=== PATIENT | male | born 1985 | race Caucasian/White ===

== ENCOUNTER 2019-12-01 16:38 | Emergency (ER) | payer OTHER, SELFPAY ==
--- NOTE | ~2019-12-01 | CT_ITS ---
EXAMINATION: CT abdomen pelvis w con DATE: 12/01/2019 19:08 INDICATION: Flank pain. Dark tarry stools. TECHNIQUE: Computed tomography (CT) of the abdomen and pelvis was performed without intravenous contr ast. Automated exposure control and iterative reconstruction technique were employed. The dose-length product was 811.00 mGy-cm. COMPARISON: 09/13/2018 FINDINGS: Mild atelectasis in the lingula and right middle lobe. Heart size is normal. No pericardial or pleura l effusion. Liver, gallbladder, spleen, pancreas, bilateral adrenal glands and kidneys are normal. Chas wels including the appendix are normal. Bladder is normal. No free intraperitoneal gas or fluid. No p athologically enlarged abdominal or pelvic lymphadenopathy. Mild lumbar levocurvature. IMPRESSION: 1. No acute intra-abdominal/pelvic process. Reviewed, dictated and finalized at location A.
[2019-12-01 16:42] VITALS: BP 147/98; PULSE 102; RESP 18; TEMP 37.1; O2SAT 98
[2019-12-01] MEDS: FAMOTIDINE 20 MG/2 ML VIAL IV PUSH (16:52)
[2019-12-01] MEDS: SODIUM CHLORIDE 0.9% IV 1,000 ML 999 ML IV CONT (16:54)
[2019-12-01 16:58] LABS: Basophils Percent Auto 0.5 % (0.2-1.2); Eosinophils Absolute Auto 0.1 K/mm3 (0-0.3); Eosinophils Percent Auto 0.8 % (0-4.4); Hematocrit 42.7 % (42.0-52.0); Hemoglobin 14.3 g/dL (14.0-18.0); Immature Granulocyte Absolute 0.03 K/mm3 (0.00-0.031); Immature Granulocyte Percent A 0.3 % (0-0.5); Lymphocytes Absolute Auto 1.94 K/mm3 (0.9-3.2); Lymphocytes Percent Auto 22.6 % (18.3-44.2); Mean Corpuscular HGB Conc 33.5 g/dl (32-36); Mean Corpuscular Hemoglobin 29.9 pg (26-34); Mean Corpuscular Volume 89.3 fl (80-100); Mean Platelet Volume 11.4 fl (7.4-10.4); Monocytes Absolute Auto 0.9 K/mm3 (0.1-0.6); Monocytes Percent Auto 10.6 % (2.6-8.5); Neutrophils Absolute Auto 5.6 K/mm3 (1.3-6.7); Neutrophils Percent Auto 65.2 % (45.5-73.1); Platelet Count Result 192 k/mm3 (150-375); Red Blood Count 4.78 M/mm3 (4.6-6.20); Red Cell Distribution Width 13.3 % (11.5-14.5); White Blood Count 8.6 K/mm3 (4.5-10.0)
--- NOTE | 2019-12-01 17:06 | ED.ABDPAIN ---
HPI - Abdominal Pain General Chief Complaint: Abdominal Pain Stated Complaint: right flank/abd pain Time Seen by Provider: 12/01/19 16:39 Source: patient Mode of arrival: ambulatory Limitations: no limitations History of Present Illness HPI narrative: Patient is a 4-year-old male who presents with 5 days duration of worsening right lower quadrant pain patient noted initial suprapubic discomfort now notes that he has focal right lower quadrant pain with some pain in the flank is a moderate aching pain patient denies any vomiting but does note nausea also notes he has had some loose stools some of which might of had blood in them. Patient denies similar occurrence in the past and has not taken anything for his symptoms Related Data Home Medications Medication Instructions Recorded Confirmed quetiapine 100 mg tablet 100 mg PO BID 05/20/19 Allergies Allergy/AdvReac Type Severity Reaction Status Date / Time No Known Allergies Allergy Verified 12/01/19 16:45 Review of Systems Review of Systems: All systems reviewed & are unremarkable except as noted in HPI and below PMFSH Past Medical History Medical History Seizures Social History Social History Smoking status: Current every day smoker Alcohol intake: never Gender identity (if verbalized by the patient): Male Exam Narrative: Exam Narrative: GENERAL: Well-appearing, well-nourished, and in no acute distress. HEAD: Normocephalic, atraumatic. EYES: PERRLA and EOMI. ENT: Nares clear, no rhinorrhea or epistaxis. Mucous membranes moist. CHEST: Clear to auscultation. No respiratory distress. No wheezes rales or rhonchi HEART: Regular rate and rhythm. No murmur heard. Normal peripheral pulses. ABDOMEN: Soft, focal right lower quadrant tenderness with generalized tenderness of the abdomen, distended EXTREMITIES: Normal range of motion. No edema. SKIN: Warm, dry, no rash. NEURO: No focal deficits. Alert and oriented x3. PSYCH: Normal mood and affect. Course Course Emergency Course: Patient is a 34-year-old male who presents to emergency department for evaluation of abdominal pain without any obvious etiology for his symptoms patient is aware of case findings treatment plan and diagnosis and felt appropriate for outpatient reevaluation and is aware of recommendations and discussion with primary care Consultations Consultation #1: Discussed case with primary care who will follow with patient tomorrow Date: 12/01/19 Time: 19:39 Vital Signs Vital signs: Vital Signs Temperature 98.7 F 12/01/19 16:42 Pulse Rate 102 H 12/01/19 16:42 Respiratory Rate 18 12/01/19 16:42 Blood Pressure 147/98 H 12/01/19 16:42 Pulse Oximetry 98 12/01/19 16:42 Temperature 98.7 F 12/01/19 16:42 Pulse Rate 82 12/01/19 18:30 Respiratory Rate 18 12/01/19 18:30 Blood Pressure 123/83 12/01/19 18:30 Pulse Oximetry 100 12/01/19 18:30 MDM - Abdominal Pain MDM Narrative Medical decision making narrative: Patient in the room at this time in no distress aware of case findings treatment plan and diagnosis agreeing to follow-up with primary care tomorrow for reevaluation patient in the room in no distress aware of case findings treatment plan diagnosis and discussion with primary care and agrees to follow-up as directed was provided with reasons to return patient felt appropriate for outpatient reevaluation Differential Diagnosis Differential diagnosis: Likely abdominal pain, acute appendicitis, constipation, diverticulitis, pancreatitis and small bowel obstruction Lab Data Result diagrams: 12/01/19 16:52 12/01/19 16:52 Labs: Lab Results 12/01/19 12/01/19 12/01/19 Range/Units 16:52 16:52 17:09 WBC 8.6 (4.5-10.0) K/mm3 RBC 4.78 (4.6-6.20) M/mm3 Hgb 14.3 (14.0-18.0) g/dL Hct 42.7 (42.0-52.0) % MCV
[2019-12-01 17:11] LABS: Alanine Aminotransferase 61 U/L (4-50); Albumin Level 4.9 g/dL (3.5-5.1); Alkaline Phosphatase 109 U/L (38-126); Aspartate Amino Transferase 41 U/L (17-59); Bilirubin,Total 0.4 mg/dL (0.2-1.3); Blood Urea Nitrogen 14 mg/dL (9-20); Calcium 9.5 mg/dL (8.4-10.2); Carbon Dioxide 24 mmol/L (22-30); Chloride 104 mmol/L (98-107); Estimated CRCL calculation 89 ml/min; Estimated Glomerular Filt Rate > 60; Glucose 93 mg/dL (75-110); Lipase 350 U/L (23-300); Potassium 3.9 mmol/L (3.4-5.0); Sodium 138 mmol/L (137-145)
[2019-12-01 17:18] LABS: Add Urine Microscopic? NO; Appearance Urine Clear (Clear); Bilirubin Urine Negative (Negative); Blood Urine Negative (Negative); Color Urine Straw (Yellow); Glucose Urine UA Negative (Negative); Ketones Urine Negative (Negative); Leukocyte Esterase Ur Negative LEU/UL (Negative); Nitrate Urine Negative (Negative); Protein Urine Negative (Negative); Urobilinogen Urine Negative mg/dL (<2.0)
[2019-12-01 18:30] VITALS: BP 123/83; PULSE 82; RESP 18; O2SAT 100
[2019-12-01] MEDS: IBUPROFEN IV 800 MG/200 ML 800 MG/200 ML BAG 400 MG IVPB (19:35)
[2019-12-01 20:18] VITALS: BP 125/89; PULSE 77; RESP 16; O2SAT 99
== END 2019-12-01 20:20 | disposition home or self-care (01) ==
PROVIDERS: Emergency Medicine Emergency Medical Services; Emergency Provider Emergency Medicine; PCP Family Medicine
DX: R10.31 Right lower quadrant pain (principal); F17.200 Nicotine dependence, unspecified, uncomplicated
CPT/HCPCS: 36415; 74177; 80053; 81003; 83690; 85025; 96361; 96365; 96375; 99284; J0131; J1741; J7030; Q9967

== ENCOUNTER 2020-03-27 14:48 | Outpatient (CLI) | payer OTHER, SELFPAY ==
[2020-03-27 15:16] LABS: Basophils Percent Auto 0.4 % (0.2-1.2); Eosinophils Percent Auto 0.3 % (0-4.4); Hematocrit 39.2 % (42.0-52.0); Hemoglobin 13.5 g/dL (14.0-18.0); Immature Granulocyte Absolute 0.04 K/mm3 (0.00-0.031); Immature Granulocyte Percent A 0.4 % (0-0.5); Lymphocytes Absolute Auto 1.66 K/mm3 (0.9-3.2); Lymphocytes Percent Auto 17.2 % (18.3-44.2); Mean Corpuscular HGB Conc 34.4 g/dl (32-36); Mean Corpuscular Hemoglobin 29.8 pg (26-34); Mean Corpuscular Volume 86.5 fl (80-100); Mean Platelet Volume 11.7 fl (7.4-10.4); Monocytes Absolute Auto 0.7 K/mm3 (0.1-0.6); Monocytes Percent Auto 7.4 % (2.6-8.5); Neutrophils Absolute Auto 7.2 K/mm3 (1.3-6.7); Neutrophils Percent Auto 74.3 % (45.5-73.1); Platelet Count Result 194 k/mm3 (150-375); Red Blood Count 4.53 M/mm3 (4.6-6.20); Red Cell Distribution Width 13.2 % (11.5-14.5); White Blood Count 9.7 K/mm3 (4.5-10.0)
[2020-03-27 15:28] LABS: CRP 1.6 mg/dL (<1.0); Uric Acid 8.4 mg/dL (3.5-8.5)
[2020-03-27 15:54] LABS: Erythrocyte Sedimentation Rate 19 mm/hr (0-20)
[2020-03-27 17:26] LABS: Appearance Synovial Fluid Hazy (Clear); Color Synovial Fluid Yellow (Colorless); Nucleated Cell Synovial Fluid 55 /uL (0-200); RBC Synovial Fluid 55 /uL (0-0); Source Synovial Fluid Synovial fluid
[2020-03-27 17:27] LABS: Lymphocytes Synovial Fluid 87 %; Macrophages Synovial Fluid 13 %
[2020-03-27 17:28] LABS: Crystals Synovial Fluid None Seen (None Seen)
== END 2020-03-27 14:49 | disposition home or self-care (01) ==
PROVIDERS: PCP Family Medicine; Visit Provider Orthopaedic Surgery
DX: M25.461 Effusion, right knee (principal)
CPT/HCPCS: 36415; 84550; 85025; 85652; 86140; 87070; 87075; 87205; 89051; 89060

== ENCOUNTER 2020-04-27 09:29 | Outpatient (CLI) | payer OTHER, SELFPAY ==
--- NOTE | ~2020-04-27 | MR_ITS ---
EXAMINATION: MR knee RT wo con DATE: 04/27/2020 10:29 INDICATION: Right knee pain and joint effusion. TECHNIQUE: Magnetic resonance imaging (MRI) of the right knee was performed without intravenous contr ast. Sequences included coronal PD-weighted FSE, coronal PD-weighted FS FSE, sagittal T2-weighted FS E, sagittal PD-weighted FS FSE and axial PD weighted fat saturated FSE. COMPARISON: None. FINDINGS: Medial compartment: Medial meniscus is normal. There is a sagittally oriented chondral fissure extending approximately 7 mm AP and involving up to 50% the cartilage thickness along the lateral side of the anterior to mid w eightbearing medial femoral condyle. Articular cartilage is otherwise normal. Lateral compartment: Lateral meniscus is normal. Articular cartilage is normal. Patellofemoral compartment: Normal variant bipartite patella with small superolateral accessory apophyseal center with contiguous articular cartilage extending across the synchondrosis between the main patella and the accessory ap ophyseal center. Articular cartilage is normal. Ligaments and tendons: Anterior and posterior cruciate ligaments are normal. The medial collateral ligament and fibular daniel ateral ligament complex are normal. Moderate size enthesophyte at the patellar insertion of the river l distal quadriceps tendon. The patellar tendon is normal. The visualized medial and lateral hamstrin g tendons as well as the iliotibial band are normal. Fluid: Physiologic amount of fluid in the joint space. No loose osteochondral bodies identified. There is fo perla edema at the inferomedial aspect of Hoffa's fat pad situated anterior to the medial tibial platea u which is of indeterminate etiology or significance. Osseous/other: Normal marrow signal. No reactive edema, fracture or pathologic marrow replacing process. IMPRESSION: 1. Single small partial-thickness chondral fissure along the weightbearing medial femoral condyle. 2. Small amount of nonspecific edema at the inferomedial aspect of Hoffa's fat pad which is of indete rminate etiology or significance. 3. Normal variant bipartite patella with normal overlying cartilage and no reactive edema to suggest apophysitis. Reviewed, dictated and finalized at location B. IMPRESSION: 1. Single small partial-thickness chondral fissure along the weightbearing medi al femoral condyle. 2. Small amount of nonspecific edema at the inferomedial aspect of Hoffa's fat pad which is of indeterminate etiology or significance. 3. Normal variant bipartite patella with normal overlying cartilage and no reac tive edema to suggest apophysitis.
== END 2020-04-27 09:30 | disposition home or self-care (01) ==
PROVIDERS: PCP Family Medicine; Visit Provider Physician Assistant Medical
DX: M25.461 Effusion, right knee (principal)
CPT/HCPCS: 73721

== ENCOUNTER 2021-12-28 14:59 | Emergency (ER) | payer OTHER, SELFPAY ==
[2021-12-28 15:10] VITALS: BP 113/67; PULSE 86; RESP 16; TEMP 36.4; O2SAT 100
[2021-12-28 15:19] VITALS: BP 113/67; PULSE 86; RESP 16; TEMP 36.4; O2SAT 100
--- NOTE | 2021-12-28 15:21 | ED.WOUNDLAC ---
HPI - Wound/Laceration General Chief Complaint: Wound/Laceration Stated Complaint: FINGER LACERATION Time Seen by Provider: 12/28/21 15:11 Source: patient Mode of arrival: ambulatory Limitations: no limitations History of Present Illness HPI narrative: Patient presents today complaining of a laceration to his left second finger that was sustained 2.5 hours prior to arrival. He was cutting drywall with a razor knife, when the knife slipped and cut a chunk of skin off of his finger, while he is working a side job. He is up-to-date on his tetanus vaccine. He does report some tingling to the finger, but denies numbness. Currently rates his pain 5/10 and has been taking no medication and no [id number] treatment prior to arrival. Related Data Allergies Allergy/AdvReac Type Severity Reaction Status Date / Time No Known Allergies Allergy Verified 12/28/21 15:18 Review of Systems Review of Systems: CONSTITUTIONAL: Denies body aches, fever, chills, or sweats. EYES: Denies visual changes, redness, or discharge. ENT: Denies rhinorrhea, congestion, sore throat, or otalgia. CARDIOVASCULAR: Denies chest pain, palpitations, or edema. RESPIRATORY: Denies cough or dyspnea. GASTROINTESTINAL: Denies abdominal pain, nausea, vomiting, or diarrhea. GENITOURINARY: Denies dysuria or hematuria. SKIN: Denies rash, itching. + Laceration to left second finger MUSCULOSKELETAL: Denies back pain, joint pain, or myalgia. NEUROLOGIC: Denies headache, numbness, tingling, or weakness. PSYCH: Denies depression or anxiety. [facility] Past Medical History Medical History (Updated 12/28/21 @ 15:26 by Joslyn Morataya, GONZALO, BC) Amnesia memory loss Atypical migraine Benign tumor of back Removal of Chronic post-traumatic headache, not intractable Colitis Encephalopathy, unspecified Nicotine dependence, unspecified, uncomplicated Seizures Sequelae of viral encephalitis Family History Family History Father Acute myocardial infarction Other Diabetes mellitus Family history of cardiovascular disease Family history of malignant neoplasm Social History Social History Alcohol intake: current Drinks per week: 4 Substance use: never Substance use type: does not use Gender identity (if verbalized by the patient): Male Comments At time of signature, I have reviewed and agree with nursing past medical, surgical, social and family history unless otherwise noted. Please see nursing chart for further information. There is no relevant family history pertinent to the presenting complaint Exam Narrative: GENERAL: Well-appearing, well-nourished, and in no acute distress. HEAD: Normocephalic, atraumatic. EYES: EOMI. No redness or drainage. Conjunctivae normal. ENT: Mucous membranes pink and moist. NECK: Normal AROM. CHEST: No respiratory distress. EXTREMITIES: Normal range of motion. No edema. SKIN: Warm, dry, no rash. Capillary refill normal. Normal skin turgor. 1x0.5cm full thickness oval skin avulsion to the pad of the left second distal phalanx. Distal sensation intact. Capillary refill normal. Full AROM of the finger. Area is tender to palpation. No active bleeding. NEURO: No focal deficits. Alert and oriented x3. Gait steady. PSYCH: Normal affect. No signs of depression or anxiety. Course Course Emergency Course: Wound has been cleaned and dressed by RN. Level of Care: Express Care Visit Vital Signs Vital signs: Vital Signs Temperature 97.6 F 12/28/21 15:10 Pulse Rate 86 12/28/21 15:10 Respiratory Rate 16 12/28/21 15:10 Blood Pressure 113/67 12/28/21 15:10 Pulse Oximetry 100 12/28/21 15:10 Oxygen Delivery Room Air 12/28/21 15:10 Temperature 97.6 F 12/28/21 15:19 Pulse Rate 86 12/28/21 15:19 Respiratory Rate 16 12/28/21 15:19 Blood Pressure 113/67 12/28/21 15:19
== END 2021-12-28 15:36 | disposition home or self-care (01) ==
PROVIDERS: Emergency Provider Nurse Practitioner; PCP Family Medicine
DX: S61.201A Unspecified open wound of left index finger without damage to nail, initial encounter (principal); W26.0XXA Contact with knife, initial encounter; W27.8XXA Contact with other nonpowered hand tool, initial encounter; G40.909 Epilepsy, unspecified, not intractable, without status epilepticus
CPT/HCPCS: 99212; G0463

== ENCOUNTER 2024-07-13 11:22 | Outpatient (CLI) | payer OTHER, SELFPAY ==
--- NOTE | ~2024-07-13 | XR_ITS ---
XR shoulder LT min 2V Ordering provider: Rylan Rodriguez MD History: . M25.512 - Pain in left shoulder, LROM . Comparison: None. FINDINGS: BONES: No acute fracture or dislocation. JOINT SPACES: The acromioclavicular joint is normal. The glenohumeral joint is normal. SOFT TISSUES: Normal. IMPRESSION: No acute osseous abnormality left shoulder. Reviewed, dictated and finalized at location A. [employer]
== END 2024-07-13 11:23 | disposition home or self-care (01) ==
PROVIDERS: PCP Family Medicine; Visit Provider Family Medicine
DX: M25.512 Pain in left shoulder (principal)
CPT/HCPCS: 73030

== ENCOUNTER 2024-09-23 12:12 | Outpatient (CLI) | payer OTHER, SELFPAY ==
--- NOTE | ~2024-09-23 | MR_ITS ---
EXAMINATION: MR shoulder LT wo con DATE: 09/23/2024 13:01 INDICATION: Left shoulder pain TECHNIQUE: Magnetic resonance imaging (MRI) of the left shoulder was performed without intravenous co ntrast. Sequences included axial PD-weighted FS FSE, coronal oblique PD-weighted FS FSE, coronal obli que T2-weighted FS FSE, sagittal PD-weighted FS FSE, and sagittal T1-weighted SE. COMPARISON: Radiograph dated 07/13/2024 FINDINGS: Coracoacromial arch: The acromion undersurface is curved in morphology (type II). Small anterior and moderate-sized latera l subacromial spurs. The coracoacromial ligament is normal. Minimal acromioclavicular osteoarthritis. Rotator cuff: Moderate supraspinatus tendinopathy without discrete tear. Small hypertrophic osteophytes along the a nterior superior facet footplate of the supraspinatus tendon. The infraspinatus, teres minor and subs capularis tendons are normal. Normal rotator cuff muscle bulk and signal. Biceps tendon, glenoid labrum and glenohumeral cartilage: Long head of the biceps tendon is normal. Glenoid labrum is normal. Glenohumeral cartilage is normal. Fluid: Physiologic amount of fluid in the glenohumeral joint and biceps tendon sheath. No loose osteochondr al bodies. Small amount of fluid in the subacromial/subdeltoid bursa consistent with mild bursitis. Bones: Low signal intensity sclerotic bone island at the glenoid. Bone marrow signal is otherwise normal wit h no reactive edema, fracture or pathologic marrow replacing process. IMPRESSION: 1. Calcified suggesting subacromial impingement including small to moderate-sized subacromial spurs, moderate tendinopathy without discrete tear at the distal supraspinatus tendon and intervening subacr omial/subdeltoid bursitis. Reviewed, dictated and finalized at location B. IMPRESSION: 1. Calcified suggesting subacromial impingement including small to moderate-siz ed subacromial spurs, moderate tendinopathy without discrete tear at the distal supraspinatus tendon and intervening subacromial/subdeltoid bursitis.
== END 2024-09-23 12:13 | disposition home or self-care (01) ==
LOC: ANHIMG 12:14
PROVIDERS: PCP Family Medicine; Visit Provider Student in an Organized Health Care Education/Training Program
DX: M25.512 Pain in left shoulder (principal); R20.0 Anesthesia of skin; R20.2 Paresthesia of skin
CPT/HCPCS: 73221